=== PATIENT | female | born 1965 | race Caucasian/White ===

== ENCOUNTER → 2017-07-21 | Outpatient (CLI) | payer OTHER ==
[~2017-07-21] MED LIST: ASPI81CH PO; BAYER CHEWABLE81 MG PO; BENZ100A PO; CEPH500 PO; CLOP75 PO; DOXY100T53 PO; FAMO20 PO; IBUP800 PO; LISI5 PO; METO25; METO50ER PO; Naprosyn500 MG PO; Norco 5-325 Ta1 EACH PO; SIMV10 PO; Simvastatin20 MG PO; VARE1
[2017-07-21 16:48] LABS: BASOPHILS ABSOLUTE AUTO 0.05 K/mm3 (0.00-0.23); BASOPHILS PERCENT AUTO 1 % (0-2); EOSINOPHILS PERCENT AUTO 2 % (0-6); Hematocrit 41.1 % (33.0-51.0); IMMATURE GRAN ABSOLUTE AUTO 0.03 K/mm3 (0.00-0.10); IMMATURE GRAN PERCENT AUTO 0 % (0-1); LYMPHOCYTES ABSOLUTE AUTO 4.11 K/mm3 (0.84-5.20); LYMPHOCYTES PERCENT AUTO 39 % (21-46); MONOCYTES PERCENT AUTO 6 % (4-13); Mean Corpuscular HGB 28.9 pg (26.0-34.0); Mean Corpuscular HGB Conc 34.1 g/dL (31.5-36.5); Mean Corpuscular Volume 85 fL (80-100); Mean Platelet Volume 11.5 fL (9.1-12.4); NEUTROPHILS ABSOLUTE AUTO 5.55 K/mm3 (1.96-9.15); NEUTROPHILS PERCENT AUTO 53 % (41-73); Platelet Count 237 K/mm3 (150-400); RDW Coefficient Variation 14.2 % (11.7-14.2); RDW Standard Deviation 43.5 fL (35.1-46.3); Red Blood Cell Count 4.85 M/mm3 (3.80-5.20); White Blood Cell Count 10.54 K/mm3 (4.00-11.30)
[2017-07-21 17:07] LABS: Anion Gap 7 mmol/L (6-16); Blood Urea Nitrogen 14 mg/dL (8-24); Bun/Creatinine Ratio 17.1 (12.0-20.0); CO2, Blood 28 mmol/L (21-32); Calcium, Blood 9.4 mg/dL (8.5-10.1); Chloride, Blood 103 mmol/L (98-108); Creatinine, Blood 0.82 mg/dL (0.40-1.00); Glomerular Filtration Rate >60 (60-); Glucose, Blood 105 mg/dL (70-99); Potassium, Blood 3.9 mmol/L (3.5-5.5); Sodium, Blood 138 mmol/L (136-145)
[2017-07-21 17:08] LABS: Troponin I <0.017 ng/mL (0.000-0.040)
== END ==
LOC: LAB EV 16:30
PROVIDERS: Physician Assistant Surgical
DX: M79.602 Pain in left arm (principal)
CPT/HCPCS: 80048; 84484; 85025

== ENCOUNTER 2017-08-22 06:58 | Emergency (ER) | payer OTHER ==
[~2017-08-22] VITALS: Ht 154.9 cm; Wt 81.7 kg
[~2017-08-22 06:58] MED LIST changes: -BAYER CHEWABLE81 MG PO; -CEPH500 PO; -DOXY100T53 PO; -IBUP800 PO; -Naprosyn500 MG PO
[2017-08-22] MEDS ORDERED: IBUP800 PO (08:01)
[2017-08-22] MEDS ORDERED: Naprosyn500 MG PO (08:19)
== END 2017-08-22 08:27 | disposition home or self-care (01) ==
LOC: ER 06:58
DX: S61.211A Laceration without foreign body of left index finger without damage to nail, initial encounter (principal); Z23 Encounter for immunization; I25.2 Old myocardial infarction; Z88.2 Allergy status to sulfonamides; Z91.018 Allergy to other foods; Z91.030 Bee allergy status; Z88.5 Allergy status to narcotic agent; W26.0XXA Contact with knife, initial encounter; F17.210 Nicotine dependence, cigarettes, uncomplicated
CPT/HCPCS: 12001; 90471; 90714; 99283

== ENCOUNTER 2017-09-02 10:28 | Emergency (ER) | payer OTHER ==
[~2017-09-02] VITALS: Ht 154.9 cm; Wt 79.4 kg
[~2017-09-02 10:28] MED LIST changes: +IBUP800 PO; +Naprosyn500 MG PO
== END 2017-09-02 11:27 | disposition home or self-care (01) ==
LOC: ER 10:28
DX: S61.211D Laceration without foreign body of left index finger without damage to nail, subsequent encounter (principal); I25.2 Old myocardial infarction; F17.210 Nicotine dependence, cigarettes, uncomplicated; Z88.2 Allergy status to sulfonamides; Z91.018 Allergy to other foods; Z91.030 Bee allergy status; Z88.5 Allergy status to narcotic agent; Z79.1 Long term (current) use of non-steroidal anti-inflammatories (NSAID); W26.8XXD Contact with other sharp object(s), not elsewhere classified, subsequent encounter
CPT/HCPCS: 99281

== ENCOUNTER 2017-09-13 19:57 | Emergency (ER) | payer OTHER ==
[~2017-09-13] VITALS: Ht 162.6 cm; Wt 79.4 kg
[2017-09-13] MEDS ORDERED: BAYER CHEWABLE81 MG PO (20:31)
[2017-09-14] MEDS ORDERED: CEPH500 PO (16:09)
[2017-09-14] MEDS ORDERED: DOXY100T53 PO (16:09)
[2017-09-14] MEDS ORDERED: Naprosyn500 MG PO (16:09)
== END 2017-09-13 20:40 | disposition home or self-care (01) ==
LOC: ER 19:57
DX: S90.821A Blister (nonthermal), right foot, initial encounter (principal); X58.XXXA Exposure to other specified factors, initial encounter; Z88.2 Allergy status to sulfonamides; Z88.8 Allergy status to other drugs, medicaments and biological substances; Z91.030 Bee allergy status; Z88.5 Allergy status to narcotic agent; Z79.899 Other long term (current) drug therapy; I25.2 Old myocardial infarction; F17.210 Nicotine dependence, cigarettes, uncomplicated

== ENCOUNTER 2017-09-14 15:32 | Emergency (ER) | payer OTHER ==
[~2017-09-14] VITALS: Ht 154.9 cm; Wt 79.4 kg
[~2017-09-14 15:32] MED LIST changes: +BAYER CHEWABLE81 MG PO
[2017-09-14] MEDS ORDERED: Naprosyn500 MG PO (16:09)
[2017-09-14] MEDS ORDERED: DOXY100T53 PO (16:09)
[2017-09-14] MEDS ORDERED: CEPH500 PO (16:09)
== END 2017-09-14 16:29 | disposition home or self-care (01) ==
LOC: ER 15:32
DX: L03.115 Cellulitis of right lower limb (principal); Z88.2 Allergy status to sulfonamides; Z88.8 Allergy status to other drugs, medicaments and biological substances; Z91.030 Bee allergy status; Z88.5 Allergy status to narcotic agent; Z79.899 Other long term (current) drug therapy; Z79.2 Long term (current) use of antibiotics; Z79.82 Long term (current) use of aspirin; I25.2 Old myocardial infarction; F17.210 Nicotine dependence, cigarettes, uncomplicated

== ENCOUNTER 2018-04-25 22:51 | Emergency (ER) | payer MEDICAID ==
[~2018-04-25] VITALS: Ht 154.9 cm; Wt 79.4 kg
[~2018-04-25 22:51] MED LIST changes: +CEPH500 PO; +DOXY100T53 PO
[2018-04-26] MEDS ORDERED: Naprosyn500 MG PO (00:51)
== END 2018-04-26 01:00 | disposition home or self-care (01) ==
LOC: ER 22:51
DX: G56.02 Carpal tunnel syndrome, left upper limb (principal); I25.2 Old myocardial infarction; F17.210 Nicotine dependence, cigarettes, uncomplicated; Z79.82 Long term (current) use of aspirin; Z88.2 Allergy status to sulfonamides; Z88.8 Allergy status to other drugs, medicaments and biological substances; Z88.5 Allergy status to narcotic agent; Z91.030 Bee allergy status
CPT/HCPCS: 29125; 93971; 99283-25

== ENCOUNTER 2018-09-18 21:33 | Inpatient (IN) | payer OTHER ==
[~2018-09-18] VITALS: Ht 154.9 cm; Wt 150.4 kg
[2018-09-18 22:20] LABS: BASOPHILS ABSOLUTE AUTO 0.04 K/mm3 (0.00-0.23); BASOPHILS PERCENT AUTO 0 % (0-2); EOSINOPHILS ABSOLUTE AUTO 0.15 K/mm3 (0.00-0.68); EOSINOPHILS PERCENT AUTO 2 % (0-6); Hematocrit 41.4 % (33.0-51.0); Hemoglobin 13.3 g/dL (11.5-16.0); IMMATURE GRAN ABSOLUTE AUTO 0.03 K/mm3 (0.00-0.10); IMMATURE GRAN PERCENT AUTO 0 % (0-1); LYMPHOCYTES PERCENT AUTO 36 % (21-46); MONOCYTES ABSOLUTE AUTO 0.51 K/mm3 (0.16-1.47); MONOCYTES PERCENT AUTO 5 % (4-13); Mean Corpuscular HGB 27.6 pg (26.0-34.0); Mean Corpuscular HGB Conc 32.1 g/dL (31.5-36.5); Mean Corpuscular Volume 86 fL (80-100); Mean Platelet Volume 11.9 fL (9.1-12.4); NEUTROPHILS ABSOLUTE AUTO 5.79 K/mm3 (1.96-9.15); NEUTROPHILS PERCENT AUTO 57 % (41-73); Platelet Count 216 K/mm3 (150-400); RDW Coefficient Variation 13.8 % (11.7-14.2); RDW Standard Deviation 43.7 fL (35.1-46.3); Red Blood Cell Count 4.82 M/mm3 (3.80-5.20); White Blood Cell Count 10.22 K/mm3 (4.00-11.30)
[2018-09-18 22:40] LABS: Alanine Aminotransfer (ALT/SGP 30 U/L (12-78); Albumin, Blood 3.7 g/dL (3.4-5.0); Albumin/Globulin Ratio 1.1 (0.8-1.8); Alk Phos 118 U/L (50-136); Anion Gap 9 mmol/L (6-16); Aspartate Aminotrans (AST/SGOT 11 U/L (12-37); Bilirubin, Total 0.2 mg/dL (0.1-1.0); Blood Urea Nitrogen 15 mg/dL (8-24); Bun/Creatinine Ratio 20.9 (12.0-20.0); CO2, Blood 25 mmol/L (21-32); Calcium, Blood 8.8 mg/dL (8.5-10.1); Chloride, Blood 107 mmol/L (98-108); Creatinine, Blood 0.72 mg/dL (0.40-1.00); Globulin, Blood 3.4 g/dL (2.2-4.0); Glomerular Filtration Rate >60 (60-); Glucose, Blood 110 mg/dL (70-99); Potassium, Blood 3.7 mmol/L (3.5-5.5); Sodium, Blood 141 mmol/L (136-145); Total Protein, Blood 7.1 g/dL (6.4-8.2); Troponin I 0.046 ng/mL (0.000-0.040)
[2018-09-18 23:56] LABS: International Normalized Ratio 0.93; Prothrombin Time Results 9.8 Sec (9.7-11.5)
--- NOTE | 2018-09-19 04:31 | NUR ---
ASSUMED CARE OF PT FROM ED @ 9273. PT ALERT AND ORIENTED, TALKING WITH STAFF APPROPRIUATELY. PT DENYING CP, PRESSURE, SOB UPON ADMISSION AND HAS CONTINUED TO DO SO T/O THE SHIFT. VSS STABLE UPON ADMISSION AND CONTINUES TO BE SO. PT'S TELE HAS SHOWN NSR WITH PVC'S. PT HAS DENIED ANY EPISODES OF ANXIETY THAT SHE REPORTEDLY HAS AT TIMES PER THE PATIENT. PT HAS BEEN RESTING IN ROOM POST ADMISSION ASSESMENT. CALL LIGHT ON BED. BED TO LOWEST POSITION. WILL CONTINUE TO MONITOR PT UNTIL SHIFT CHANGE.
--- NOTE | 2018-09-19 05:30 | NUR ---
PT PLACED ON HEPARIN INFUSION, 16.1 ML/HR UPON ADMISSION, BOLUS GIVEN.
[2018-09-19 06:39] LABS: Hematocrit 41.9 % (33.0-51.0); Hemoglobin 13.3 g/dL (11.5-16.0); Mean Corpuscular HGB 27.5 pg (26.0-34.0); Mean Corpuscular HGB Conc 31.7 g/dL (31.5-36.5); Mean Corpuscular Volume 87 fL (80-100); Mean Platelet Volume 11.9 fL (9.1-12.4); Platelet Count 179 K/mm3 (150-400); RDW Coefficient Variation 13.9 % (11.7-14.2); RDW Standard Deviation 43.8 fL (35.1-46.3); Red Blood Cell Count 4.84 M/mm3 (3.80-5.20); White Blood Cell Count 8.54 K/mm3 (4.00-11.30)
[2018-09-19 07:03] LABS: Troponin I 0.098 ng/mL (0.000-0.040)
[2018-09-19 07:12] LABS: Alanine Aminotransfer (ALT/SGP 31 U/L (12-78); Albumin, Blood 3.3 g/dL (3.4-5.0); Alk Phos 111 U/L (50-136); Anion Gap 9 mmol/L (6-16); Aspartate Aminotrans (AST/SGOT 11 U/L (12-37); Bilirubin, Total 0.2 mg/dL (0.1-1.0); Blood Urea Nitrogen 14 mg/dL (8-24); Bun/Creatinine Ratio 20.5 (12.0-20.0); CO2, Blood 24 mmol/L (21-32); Calcium, Blood 8.7 mg/dL (8.5-10.1); Chloride, Blood 110 mmol/L (98-108); Creatinine, Blood 0.68 mg/dL (0.40-1.00); Globulin, Blood 3.3 g/dL (2.2-4.0); Glomerular Filtration Rate >60 (60-); Glucose, Blood 115 mg/dL (70-99); Potassium, Blood 3.8 mmol/L (3.5-5.5); Sodium, Blood 143 mmol/L (136-145); Total Protein, Blood 6.6 g/dL (6.4-8.2)
--- NOTE | 2018-09-19 07:20 | NUR ---
AM ASSESSMENT: Pt resting in bed. Denies CP, SOB or pain at this time. LS clear. BT positive. Pulses palp. Denies numbness or tingling. Pt waiting to see [employer] Salesperson for plan. VSS. Will continue to monitor.
[2018-09-19 09:24] LABS: U Amphetamine Screen Not Detected; U Barbituate Screen Not Detected; U Benzodiazapine Screen Not Detected; U Buprenorphine Screen Not Detected; U Cannabinoids Screen Not Detected; U Cocaine Screen Not Detected; U Methadone Screen Not Detected; U Methamphetamine Screen Not Detected; U Opiates Screen Not Detected; U Oxycodone Screen Not Detected; U Phencyclidine Screen Not Detected; U Propoxyphene Screen Not Detected
--- NOTE | 2018-09-19 11:35 | NUR ---
UPDATE: Pt started to have C/O chest pain. that was in the L side of chest and radiated over back and down arms. States it is a pressure pain 10/16. VSS. No changes or Tele. Pt medicated with one tablet of SL nitro. Pain decreased down to 0. Pt NPO for an angiogram today. Will monitor and inform physicain of episode of chest pain. Pt denies needs at this time.
--- NOTE | 2018-09-19 14:10 | NUR ---
update: Pt states that she was having 5/10 chest pain. No changes on tele. By the time RN went into room Chest pain had subsided and Pt denied needing nitro. VSS. Call light in reach. Pt knows that she will be having an angiogram today. Still NPO. Will continue to monitor.
[2018-09-19 14:49] LABS: Troponin I 0.046 ng/mL (0.000-0.040)
--- NOTE | 2018-09-19 15:45 | NUR ---
PT TAKEN TO [facility]. WILL AWAIT RETURN
--- NOTE | 2018-09-19 18:41 | NUR ---
Shift Summary: Pt arrived back to room post angiogram at 1715. VSS. R wrist TR band site with some numbness and tingling to fingers. Cap refill is <2. 2CC air removed, no bleeding, swelling, oozing or hematoma noted. 10CC air left in band. LS clear. HR reg. Pt denies CP, Pain or SOB. Pt instructed not to use R wrist and about post-op vitals routine. Pt given dinner, water and juice per her request. Will continue to monitor and report to night RN.
--- NOTE | 2018-09-19 19:25 | NUR ---
UPDATE: At 1845 check pt had small hemtoma formed just above TR band site. 12 min of pressure held. Pt C/O some tenderness at site and some numbness in fingers. Cap refil <3 sec, small amount of swelling in fingers. Rings were removed and placed in baggy in drawer at bedside. Pressure dressing placed at hematoma site after pressure was held and report was given to night RN.
[2018-09-20 04:14] LABS: BASOPHILS ABSOLUTE AUTO 0.04 K/mm3 (0.00-0.23); BASOPHILS PERCENT AUTO 1 % (0-2); EOSINOPHILS ABSOLUTE AUTO 0.18 K/mm3 (0.00-0.68); EOSINOPHILS PERCENT AUTO 2 % (0-6); Hematocrit 42.2 % (33.0-51.0); Hemoglobin 13.6 g/dL (11.5-16.0); IMMATURE GRAN ABSOLUTE AUTO 0.02 K/mm3 (0.00-0.10); IMMATURE GRAN PERCENT AUTO 0 % (0-1); LYMPHOCYTES ABSOLUTE AUTO 2.67 K/mm3 (0.84-5.20); LYMPHOCYTES PERCENT AUTO 32 % (21-46); MONOCYTES ABSOLUTE AUTO 0.47 K/mm3 (0.16-1.47); MONOCYTES PERCENT AUTO 6 % (4-13); Mean Corpuscular HGB 27.1 pg (26.0-34.0); Mean Corpuscular HGB Conc 32.2 g/dL (31.5-36.5); Mean Platelet Volume 11.5 fL (9.1-12.4); NEUTROPHILS ABSOLUTE AUTO 4.91 K/mm3 (1.96-9.15); NEUTROPHILS PERCENT AUTO 59 % (41-73); Platelet Count 217 K/mm3 (150-400); RDW Standard Deviation 42.7 fL (35.1-46.3); Red Blood Cell Count 5.02 M/mm3 (3.80-5.20); White Blood Cell Count 8.29 K/mm3 (4.00-11.30)
[2018-09-20 04:16] LABS: Mean Corpuscular Volume 84 fL (80-100)
[2018-09-20 04:35] LABS: Anion Gap 7 mmol/L (6-16); Anion Gap 8 mmol/L (6-16); Blood Urea Nitrogen 13 mg/dL (8-24); Bun/Creatinine Ratio 19.7 (12.0-20.0); Bun/Creatinine Ratio 20.1 (12.0-20.0); CHOL/HDL RATIO 5.7; CO2, Blood 25 mmol/L (21-32); CO2, Blood 26 mmol/L (21-32); Calcium, Blood 8.8 mg/dL (8.5-10.1); Chloride, Blood 108 mmol/L (98-108); Chloride, Blood 109 mmol/L (98-108); Cholesterol 165 mg/dL (50-200); Cholesterol 170 mg/dL (50-200); Creatinine, Blood 0.65 mg/dL (0.40-1.00); Creatinine, Blood 0.66 mg/dL (0.40-1.00); Glomerular Filtration Rate >60 (60-); Glucose, Blood 116 mg/dL (70-99); Glucose, Blood 120 mg/dL (70-99); HDL Cholesterol 29 mg/dL (>39); HDL Cholesterol 30 mg/dL (>39); LDL/HDL RATIO 3.5; Low Density Lipoprotein Chol 100 mg/dL (0-110); Low Density Lipoprotein Chol 105 mg/dL (0-110); Potassium, Blood 3.9 mmol/L (3.5-5.5); Sodium, Blood 141 mmol/L (136-145); Sodium, Blood 142 mmol/L (136-145); Triglycerides 173 mg/dL (30-160); Triglycerides 178 mg/dL (30-160); Very Low Density Lipoprot Chol 34 mg/dL (6-32); Very Low Density Lipoprot Chol 35 mg/dL (6-32)
--- NOTE | 2018-09-20 05:19 | NUR ---
SHIFT SUMMARY PATIENT REMAINED STABLE THROUGHOUT THE SHIFT. STAYED ON NSR WITH PVC'S AND SINUS BRADYCARDIA HEART RATE AT 57. TR BAND ON RIGHT RADIAL WITH HEMATOMA, REMOVED 2ML OF AIR AT 1915, REMOVED 2ML OF AI 1999, ADDED 4ML OF AIR AT 2145 BECAUSE OF BLEEDING, REMOVED 2 ML OF AIR AT 0400, REMOVED 3ML AT 0415, REMOVED 3ML AT 0500, AT 0515 PATIENT FULLY RECOVERED. BED IS LOCK, IN LOW POSITION AND CALL LIGHT WITHIN REACH.
--- NOTE | 2018-09-20 07:50 | NUR ---
AM ASSESSMENT: Pt resting in bed. R wrist with TR band site immobilizer intact. Pt has bruise and tenderness at site, tegaderm dressing clean and intact. Pt denies CP, SOB, pain or numbness/tingling. States that she is excited to go home today. LS clear. BT positive. Pulses palp. VSS. Call light in reach. Will monitor.
[2018-09-20] MEDS ORDERED: Aspir 8181 MG PO (10:30)
[2018-09-20] MEDS ORDERED: CLOP75 PO (10:31)
[2018-09-20] MEDS ORDERED: ATOR80 PO (10:31)
[2018-09-20] MEDS ORDERED: FISH OIL 1,001000 MG PO (10:53)
[2018-09-20] MEDS ORDERED: NITR.4SL SL (10:55)
[2018-09-20] MEDS ORDERED: METO25 PO (11:41)
[2018-09-20] MEDS ORDERED: NICO21TP TOP (11:41)
--- NOTE | 2018-09-20 13:30 | NUR ---
Discharge: Pt has discharge orders. Was able to get up and ambulate throughout the hallway without issues. VS had remained stable since this am. Rx were faxed to [facility]. IV discontinued, Cath intact. Pt was given verbal and written discharge instructions. Denies questions, verablized understanding. Pt ambulated out with RN. Stable at time of discharge.
== END 2018-09-20 13:20 | disposition home or self-care (01) | DRG 249 ==
LOC: ER 21:33 → PCU 21:34
PROVIDERS: Emergency Medicine; Internal Medicine; Internal Medicine Cardiovascular Disease; ADMIT Internal Medicine
PROC: 4A023N7 Measurement of Cardiac Sampling and Pressure, Left Heart, Percutaneous Approach (ICD-10-PCS; principal; 2018-09-19)
PROC: 02703DZ Dilation of Coronary Artery, One Artery with Intraluminal Device, Percutaneous Approach (ICD-10-PCS; 2018-09-19)
PROC: B211YZZ Fluoroscopy of Multiple Coronary Arteries using Other Contrast (ICD-10-PCS; 2018-09-19)
DX: I21.4 Non-ST elevation (NSTEMI) myocardial infarction (principal); F17.210 Nicotine dependence, cigarettes, uncomplicated; I25.10 Atherosclerotic heart disease of native coronary artery without angina pectoris; E78.5 Hyperlipidemia, unspecified; I10 Essential (primary) hypertension
CPT/HCPCS: 36415; 71046; 80048; 80053; 80061; 82550; 83880; 84484; 85025; 85027; 85610; 85730; 92928; 93005; 93010; 93306; 93458; 96374; 96375; 96376; 99152; 99153; 99285-25; C1725; C1769; C1876; C1887; C1894; G0378; J1644; J2250; J3010; J7030; Q9967

== ENCOUNTER → 2019-04-19 | Outpatient (CLI) | payer OTHER ==
[~2019-04-19] MED LIST changes: +ATOR40TA PO; +ATOR80 PO; +Aspir 8181 MG PO; +Bisoprolol Fumar5 MG PO; +FISH OIL 1,001000 MG PO; +Isosorbide Mono30 MG PO; +NICO21TP TOP; +NITR.4SL SL; +TICA90TA PO
[2019-04-30 15:06] LABS: COTININE None Detected (.); NICOTINE None Detected (.)
== END | disposition home or self-care (01) ==
LOC: OLS 16:21 → LAB SHORT 16:21 → LAB FUT 16:21
PROVIDERS: Internal Medicine Cardiovascular Disease
DX: I25.10 Atherosclerotic heart disease of native coronary artery without angina pectoris (principal); Z87.891 Personal history of nicotine dependence
CPT/HCPCS: G0480

== ENCOUNTER 2019-05-21 07:34 | Day surgery (SDC) | payer OTHER ==
[~2019-05-21] VITALS: Ht 152.4 cm; Wt 83.0 kg
[~2019-05-21 07:34] MED LIST changes: -TICA90TA PO
--- NOTE | 2019-05-21 16:30 | NUR ---
UPDATE ASSUMED CARE AT APPROXIMATELY 1430. PT ALERT AND ORIENTED. VS STABLE. HR NSR. BP STABLE. RIGHT RADIAL SITE WITH TR BAND 12ML OF AIR INFLATED. NO SIGNS OF BLEEDING, HEMATOMA, OR BRUISING NOTED. PT REPORTS SLIGHT TIGHTNESS IN CHEST. SLIGHT SWELLING NOTED AT RIGHT ELBOW. DR. SAWANT CALLED AND ORDERS TO WRAP IN [place] AND MONITOR SWELLING. WILL CONTINUE TO MONITOR CLOSELY.
--- NOTE | 2019-05-21 18:51 | NUR ---
SHIFT SUMMARY PT ALERT AND ORIENTED. VS STABLE. RIGHT RADIAL SITE WITH TR BAND AND 6ML REMOVED FROM BAND AT THIS TIME. NO BLEEDING OR BRUISING NOTED. SWELLING TO RIGHT ELBOW REMAINS UNCHANGED AT THIS TIME. SPOKE TO DR. SAWANT AGAIN ON THE PHONE AND HE REPORTS HE WILL BE BY IN THE AM TO SEE PT. WILL CONTINUE TO MONITOR AND REPORT TO ONCOMING RN.
--- NOTE | 2019-05-21 21:30 | NUR ---
TR BAND REMOVED TR BAND REMOVED, NO S/SX OF BLEEDING OR HEMATOMA NOTED. TEGADERM DRESSING APPLIED OVER PCI SITE. ARM BOARD INPLACE. PATIENT EDUCATED TO POST ANGIO PRECAUTIONS. VSS.
--- NOTE | 2019-05-22 06:02 | NUR ---
PCU NOC SHIFT SUMMARY PATIENT REMAINS ALERT AND ORIENTED X4. PATIENTS HR REMAINS NSR WITH NO CARDIAC EVENTS NOTED PER PATIENT. RESP E/U ON ROOM AIR. PATIENT SLEPT WELL T/O SHIFT. NO S/SX OR REPORT OF PAIN. ARM BOARD REMAIN ON RIGHT RADIAL FOR PCI SITE PROTECTION - TEGADERM DRESSING IN PLACE, SITE WNL. CALL LIGHT W/I REACH; PATIENT DENIES ANY NEEDS AT THIS TIME. WILL CONTINUE TO MONITOR AND REPORT TO DAYSHIFT RN.
[2019-05-22] MEDS ORDERED: METO50ER PO (09:05)
[2019-05-22] MEDS ORDERED: TICA90TA PO (09:07)
--- NOTE | 2019-05-22 10:14 | NUR ---
UPDATE DR. SAWANT IN THIS AM WITH ORDERS FOR DISCHARGE. RIGHT RADIAL SITE WITH TEGADERM IN PLACE AND ARM BOARD ON. NO HEMATOMA OR BLEEDING NOTED. DISCHARGE INSTRUCTIONS PROVIDED TO PT. PT EDUCATED ON RIGHT ARM RESTRICTIONS. EDUCATION PROVIDED ON NEW MEDICATIONS. PT PROVIDED FOLLOW-UP APPT WITH CARDIOLOGY. IV REMOVED. DIRECTOR PUBLIC SERVICE OFF. PT WAITING FOR RIDE AND WILL BE TAKEN OUT BY WC.
== END 2019-05-22 10:50 | disposition home or self-care (01) ==
LOC: MHTC 07:34 → PCU 14:24 → MHTC 05-22 10:50
PROC: 02H03DZ Insertion of Intraluminal Device into Coronary Artery, One Artery, Percutaneous Approach (ICD-10-PCS; principal; 2019-05-21)
PROC: B201YZZ Plain Radiography of Multiple Coronary Arteries using Other Contrast (ICD-10-PCS; principal; 2019-05-21)
PROC: 4A023N7 Measurement of Cardiac Sampling and Pressure, Left Heart, Percutaneous Approach (ICD-10-PCS; principal; 2019-05-21)
DX: I25.110 Atherosclerotic heart disease of native coronary artery with unstable angina pectoris (principal); T82.855A Stenosis of coronary artery stent, initial encounter; Y71.2 Prosthetic and other implants, materials and accessory cardiovascular devices associated with adverse incidents; I10 Essential (primary) hypertension; I25.2 Old myocardial infarction; E78.5 Hyperlipidemia, unspecified; Z87.891 Personal history of nicotine dependence; Z88.2 Allergy status to sulfonamides; Z79.02 Long term (current) use of antithrombotics/antiplatelets; Z79.899 Other long term (current) drug therapy; Z79.82 Long term (current) use of aspirin
CPT/HCPCS: 85347; 92921; 92978; 93458; 99152; 99153; C1725; C1753; C1769; C1874; C1887; C1894; C9600; J1644; J1650; J2250; J3010; J7030; Q9967

== ENCOUNTER → 2019-06-14 | Outpatient (CLI) | payer OTHER ==
[~2019-06-14] MED LIST changes: +TICA90TA PO
[2019-06-14 18:13] LABS: Source, Urine Clean Catch
[2019-06-14 18:17] LABS: Bacteria Rare /hpf; Red Blood Cells, Urine 0-2 /hpf (0-2); Squamous Epithelial Cells Few /hpf (Few); White Blood Cells, Urine 0-2 /hpf (0-5)
== END | disposition home or self-care (01) ==
LOC: LAB SHORT 18:12 → LAB EV 18:12
PROVIDERS: Physician Assistant
DX: M54.5 Low back pain (principal)
CPT/HCPCS: 81015; 87086

== ENCOUNTER → 2020-02-13 | Outpatient (CLI) | payer OTHER ==
[2020-02-13 12:11] LABS: BASOPHILS ABSOLUTE AUTO 0.02 K/mm3 (0.00-0.23); BASOPHILS PERCENT AUTO 0 % (0-2); EOSINOPHILS ABSOLUTE AUTO 0.16 K/mm3 (0.00-0.68); EOSINOPHILS PERCENT AUTO 2 % (0-6); Hematocrit 42.3 % (33.0-51.0); Hemoglobin 14.1 g/dL (11.5-16.0); IMMATURE GRAN ABSOLUTE AUTO 0.03 K/mm3 (0.00-0.10); IMMATURE GRAN PERCENT AUTO 0 % (0-1); LYMPHOCYTES ABSOLUTE AUTO 2.27 K/mm3 (0.84-5.20); LYMPHOCYTES PERCENT AUTO 33 % (21-46); MONOCYTES ABSOLUTE AUTO 0.48 K/mm3 (0.16-1.47); MONOCYTES PERCENT AUTO 7 % (4-13); Mean Corpuscular HGB 27.3 pg (26.0-34.0); Mean Corpuscular HGB Conc 33.3 g/dL (31.5-36.5); Mean Corpuscular Volume 82 fL (80-100); Mean Platelet Volume 11.5 fL (9.1-12.4); NEUTROPHILS ABSOLUTE AUTO 3.98 K/mm3 (1.96-9.15); NEUTROPHILS PERCENT AUTO 57 % (41-73); Platelet Count 226 K/mm3 (150-400); RDW Coefficient Variation 14.2 % (11.7-14.2); RDW Standard Deviation 41.4 fL (35.1-46.3); Red Blood Cell Count 5.16 M/mm3 (3.80-5.20); White Blood Cell Count 6.94 K/mm3 (4.00-11.30)
[2020-02-13 12:23] LABS: Anion Gap 8 mmol/L (6-16); Blood Urea Nitrogen 11 mg/dL (8-24); Bun/Creatinine Ratio 11.2 (12.0-20.0); CO2, Blood 27 mmol/L (21-32); Calcium, Blood 9.6 mg/dL (8.5-10.1); Chloride, Blood 104 mmol/L (98-108); Creatinine, Blood 0.98 mg/dL (0.40-1.00); Glomerular Filtration Rate 59 (60-); Glucose, Blood 107 mg/dL (70-99); Potassium, Blood 4.3 mmol/L (3.5-5.5); Sodium, Blood 139 mmol/L (136-145)
[2020-02-13 12:27] LABS: Troponin I <0.017 ng/mL (0.000-0.040)
== END | disposition home or self-care (01) ==
LOC: LAB EV 11:55 → LAB SHORT 11:55
PROVIDERS: Physician Assistant Surgical
DX: M79.602 Pain in left arm (principal)
CPT/HCPCS: 80048; 84484; 85025

== ENCOUNTER → 2021-08-26 | Outpatient (CLI) | payer OTHER ==
[2021-08-26 17:45] LABS: Albumin, Blood 3.8 g/dL (3.4-5.0); Albumin/Globulin Ratio 0.9 (0.8-1.8); Alk Phos 199 U/L (50-136); Anion Gap 4 mmol/L (6-16); Aspartate Aminotrans (AST/SGOT 109 U/L (12-37); Bilirubin, Direct 0.2 mg/dL (0.0-0.3); Bilirubin, Indirect 0.2 mg/dL (0.1-0.7); Bilirubin, Total 0.4 mg/dL (0.1-1.0); Blood Urea Nitrogen 10 mg/dL (8-24); CO2, Blood 27 mmol/L (21-32); Calcium, Blood 9.1 mg/dL (8.5-10.1); Chloride, Blood 107 mmol/L (98-108); Cholesterol 134 mg/dL (50-200); Globulin, Blood 4.1 g/dL (2.2-4.0); Glucose, Blood 119 mg/dL (70-99); HDL Cholesterol 27 mg/dL (>39); LDL/HDL RATIO 3.2; Low Density Lipoprotein Chol 87 mg/dL (0-110); Potassium, Blood 4.4 mmol/L (3.5-5.5); Sodium, Blood 138 mmol/L (136-145); Total Protein, Blood 7.9 g/dL (6.4-8.2); Triglycerides 99 mg/dL (30-160); Very Low Density Lipoprot Chol 19 mg/dL (6-32)
[2021-08-26 17:51] LABS: Alanine Aminotransfer (ALT/SGP 199 U/L (12-78); Bun/Creatinine Ratio 16.2 (12.0-20.0); Creatinine, Blood 0.62 mg/dL (0.40-1.00); Glomerular Filtration Rate >60 (60-)
== END | disposition home or self-care (01) ==
LOC: LAB SHORT 16:46
PROVIDERS: Nurse Practitioner Family
DX: E55.9 Vitamin D deficiency, unspecified (principal); E66.9 Obesity, unspecified; B35.4 Tinea corporis
CPT/HCPCS: 80053; 80061; 82248; 82306; 83036; 84443

== ENCOUNTER → 2021-09-01 | Outpatient (CLI) | payer OTHER ==
[2021-09-01 15:17] LABS: BASOPHILS ABSOLUTE AUTO 0.03 K/mm3 (0.00-0.23); BASOPHILS PERCENT AUTO 0 % (0-2); EOSINOPHILS PERCENT AUTO 1 % (0-6); Hematocrit 42.1 % (33.0-51.0); IMMATURE GRAN ABSOLUTE AUTO 0.02 K/mm3 (0.00-0.10); IMMATURE GRAN PERCENT AUTO 0 % (0-1); LYMPHOCYTES ABSOLUTE AUTO 2.25 K/mm3 (0.84-5.20); LYMPHOCYTES PERCENT AUTO 29 % (21-46); MONOCYTES ABSOLUTE AUTO 0.48 K/mm3 (0.16-1.47); MONOCYTES PERCENT AUTO 6 % (4-13); Mean Corpuscular HGB 27.6 pg (26.0-34.0); Mean Corpuscular HGB Conc 33.3 g/dL (31.5-36.5); Mean Corpuscular Volume 83 fL (80-100); Mean Platelet Volume 11.2 fL (9.1-12.4); NEUTROPHILS ABSOLUTE AUTO 4.81 K/mm3 (1.96-9.15); NEUTROPHILS PERCENT AUTO 63 % (41-73); Platelet Count 181 K/mm3 (150-400); RDW Coefficient Variation 14.5 % (11.7-14.2); RDW Standard Deviation 43.1 fL (35.1-46.3); Red Blood Cell Count 5.07 M/mm3 (3.80-5.20); White Blood Cell Count 7.69 K/mm3 (4.00-11.30)
[2021-09-01 15:26] LABS: Alanine Aminotransfer (ALT/SGP 192 U/L (12-78); Albumin, Blood 3.9 g/dL (3.4-5.0); Albumin/Globulin Ratio 0.8 (0.8-1.8); Alk Phos 178 U/L (40-126); Anion Gap 10 mmol/L (6-16); Aspartate Aminotrans (AST/SGOT 100 U/L (12-37); Bilirubin, Total 0.6 mg/dL (0.1-1.0); Blood Urea Nitrogen 15 mg/dL (8-24); Bun/Creatinine Ratio 20.8 (12.0-20.0); CO2, Blood 25 mmol/L (21-32); Calcium, Blood 9.1 mg/dL (8.5-10.1); Chloride, Blood 102 mmol/L (98-108); Creatinine, Blood 0.72 mg/dL (0.40-1.00); Globulin, Blood 4.8 g/dL (2.2-4.0); Glomerular Filtration Rate >60 (60-); Glucose, Blood 106 mg/dL (70-99); Potassium, Blood 3.9 mmol/L (3.5-5.5); Sodium, Blood 137 mmol/L (136-145); Total Protein, Blood 8.7 g/dL (6.4-8.2)
[2021-09-02 20:08] LABS: ANA DIRECT Positive (Negative); ANTI-DNA (DS) AB QN 22 IU/mL (0-9); RNP ANTIBODIES 0.5 AI (0.0-0.9); SJOGREN'S ANTI-SS-A <0.2 AI (0.0-0.9); SJOGREN'S ANTI-SS-B <0.2 AI (0.0-0.9); SMITH ANTIBODIES <0.2 AI (0.0-0.9)
== END | disposition home or self-care (01) ==
LOC: LAB SHORT 15:11
PROVIDERS: Chiropractor
DX: R21 Rash and other nonspecific skin eruption (principal)
CPT/HCPCS: 80053; 85025; 86430

== ENCOUNTER → 2022-08-05 | Outpatient (CLI) | payer OTHER ==
[2022-08-05 19:43] LABS: BASOPHILS ABSOLUTE AUTO 0.03 K/mm3 (0.00-0.23); BASOPHILS PERCENT AUTO 0 % (0-2); EOSINOPHILS ABSOLUTE AUTO 0.07 K/mm3 (0.00-0.68); EOSINOPHILS PERCENT AUTO 1 % (0-6); Hematocrit 40.9 % (33.0-51.0); Hemoglobin 13.5 g/dL (11.5-16.0); IMMATURE GRAN ABSOLUTE AUTO 0.01 K/mm3 (0.00-0.10); IMMATURE GRAN PERCENT AUTO 0 % (0-1); LYMPHOCYTES ABSOLUTE AUTO 2.64 K/mm3 (0.84-5.20); LYMPHOCYTES PERCENT AUTO 39 % (21-46); MONOCYTES ABSOLUTE AUTO 0.32 K/mm3 (0.16-1.47); MONOCYTES PERCENT AUTO 5 % (4-13); Mean Corpuscular HGB 27.7 pg (26.0-34.0); Mean Corpuscular Volume 84 fL (80-100); Mean Platelet Volume 12.4 fL (9.1-12.4); NEUTROPHILS ABSOLUTE AUTO 3.73 K/mm3 (1.96-9.15); NEUTROPHILS PERCENT AUTO 55 % (41-73); Platelet Count 196 K/mm3 (150-400); RDW Coefficient Variation 14.1 % (11.7-14.2); RDW Standard Deviation 43.7 fL (35.1-46.3); Red Blood Cell Count 4.87 M/mm3 (3.80-5.20)
[2022-08-05 20:04] LABS: Albumin, Blood 3.8 g/dL (3.4-5.0); Bilirubin, Total 0.5 mg/dL (0.1-1.0); Bun/Creatinine Ratio 14.9 (12.0-20.0); Calcium, Blood 9.2 mg/dL (8.5-10.1); Creatinine, Blood 0.74 mg/dL (0.40-1.00); Globulin, Blood 3.9 g/dL (2.2-4.0); Total Protein, Blood 7.7 g/dL (6.4-8.2)
== END | disposition home or self-care (01) ==
LOC: LAB SHORT 14:30
PROVIDERS: Internal Medicine Rheumatology
DX: L93.0 Discoid lupus erythematosus (principal); K76.89 Other specified diseases of liver
CPT/HCPCS: 80053; 85025; 85651

== ENCOUNTER → 2023-10-17 | Outpatient (CLI) | payer OTHER ==
[2023-10-17 17:43] LABS: BASOPHILS ABSOLUTE AUTO 0.04 K/mm3 (0.00-0.23); BASOPHILS PERCENT AUTO 1 % (0-2); EOSINOPHILS ABSOLUTE AUTO 0.11 K/mm3 (0.00-0.68); EOSINOPHILS PERCENT AUTO 1 % (0-6); Hematocrit 42.6 % (33.0-51.0); Hemoglobin 13.9 g/dL (11.5-16.0); IMMATURE GRAN ABSOLUTE AUTO 0.05 K/mm3 (0.00-0.10); IMMATURE GRAN PERCENT AUTO 1 % (0-1); LYMPHOCYTES ABSOLUTE AUTO 2.74 K/mm3 (0.84-5.20); LYMPHOCYTES PERCENT AUTO 33 % (21-46); MONOCYTES ABSOLUTE AUTO 0.42 K/mm3 (0.16-1.47); MONOCYTES PERCENT AUTO 5 % (4-13); Mean Corpuscular HGB 27.8 pg (26.0-34.0); Mean Corpuscular HGB Conc 32.6 g/dL (31.5-36.5); Mean Corpuscular Volume 85 fL (80-100); Mean Platelet Volume 11.9 fL (9.1-12.4); NEUTROPHILS ABSOLUTE AUTO 5.07 K/mm3 (1.96-9.15); NEUTROPHILS PERCENT AUTO 60 % (41-73); Platelet Count 198 K/mm3 (150-400); RDW Standard Deviation 43.3 fL (35.1-46.3); White Blood Cell Count 8.43 K/mm3 (4.00-11.30)
[2023-10-17 18:00] LABS: Alanine Aminotransfer (ALT/SGP 23 U/L (12-78); Albumin, Blood 3.9 g/dL (3.4-5.0); Alk Phos 123 U/L (50-136); Anion Gap 8 mmol/L (3-11); Aspartate Aminotrans (AST/SGOT 15 U/L (12-37); Bilirubin, Total 0.4 mg/dL (0.1-1.0); Blood Urea Nitrogen 12 mg/dL (8-24); Bun/Creatinine Ratio 15.7 (12.0-20.0); CHOL/HDL RATIO 5.7; CO2, Blood 27 mmol/L (21-32); Chloride, Blood 106 mmol/L (98-108); Cholesterol 198 mg/dL (50-200); Creatinine, Blood 0.76 mg/dL (0.40-1.00); Globulin, Blood 3.8 g/dL (2.2-4.0); Glomerular Filtration Rate 90 (60-); Glucose, Blood 102 mg/dL (70-99); HDL Cholesterol 35 mg/dL (>39); LDL/HDL RATIO 3.8; Low Density Lipoprotein Chol 132 mg/dL (0-110); Potassium, Blood 4.2 mmol/L (3.5-5.5); Sodium, Blood 137 mmol/L (136-145); Total Protein, Blood 7.7 g/dL (6.4-8.2); Triglycerides 157 mg/dL (30-160); Very Low Density Lipoprot Chol 31 mg/dL (6-32)
== END ==
LOC: LAB 08:20 → LAB SHORT 08:20
PROVIDERS: Nurse Practitioner Family
DX: I10 Essential (primary) hypertension (principal); E55.9 Vitamin D deficiency, unspecified; E78.5 Hyperlipidemia, unspecified; R73.03 Prediabetes
CPT/HCPCS: 80053; 80061; 82306; 83036; 84443; 85025

== ENCOUNTER 2024-03-30 06:40 | Day surgery (SDC) | payer OTHER ==
[~2024-03-30] VITALS: Ht 152.4 cm; Wt 84.0 kg
[2024-03-30] MEDS ORDERED: HYDSUL200 PO (07:15)
[2024-03-30] MEDS ORDERED: HYDSUL200 (07:15)
[2024-03-30] MEDS ORDERED: propofoL 50 ML IV ONE ×2 (07:31→08:57)
[2024-03-30] MEDS ORDERED: Lactated Ringer's 1,000 ML IV ONE ×2 (07:40→07:43)
[2024-03-30 09:37] VITALS: BP 105/59
--- NOTE | 2024-03-30 09:40 | NUR ---
03/30/24 0940 Val Jones PATIENT REPORTED 2-3 ABDOMINAL CRAMPING INITIALLY AFTER PROCEDURE BUT AFTER GETTING UP TO RESTROOM TO URINATE REPORTED THAT DISCOMFORT COMPLETELY RESOLVED.
== END 2024-03-30 09:35 | disposition home or self-care (01) ==
LOC: ORSCSDS 06:40
DX: Z12.11 Encounter for screening for malignant neoplasm of colon (principal); D12.3 Benign neoplasm of transverse colon; D12.2 Benign neoplasm of ascending colon; D12.4 Benign neoplasm of descending colon; D12.8 Benign neoplasm of rectum; R19.5 Other fecal abnormalities; I25.10 Atherosclerotic heart disease of native coronary artery without angina pectoris; E78.5 Hyperlipidemia, unspecified; M32.9 Systemic lupus erythematosus, unspecified; F17.210 Nicotine dependence, cigarettes, uncomplicated; Z79.82 Long term (current) use of aspirin; Z79.899 Other long term (current) drug therapy
CPT/HCPCS: 88305; J2704; J7120

== ENCOUNTER → 2025-02-05 | Outpatient (CLI) | payer OTHER ==
[~2025-02-05] MED LIST changes: +HYDSUL200; +HYDSUL200 PO
[2025-02-05 18:09] LABS: BASOPHILS ABSOLUTE AUTO 0.03 K/mm3 (0.00-0.23); BASOPHILS PERCENT AUTO 0 % (0-2); EOSINOPHILS ABSOLUTE AUTO 0.12 K/mm3 (0.00-0.68); EOSINOPHILS PERCENT AUTO 2 % (0-6); Hematocrit 42.9 % (33.0-51.0); Hemoglobin 14.1 g/dL (11.5-16.0); IMMATURE GRAN ABSOLUTE AUTO 0.02 K/mm3 (0.00-0.10); IMMATURE GRAN PERCENT AUTO 0 % (0-1); LYMPHOCYTES ABSOLUTE AUTO 2.03 K/mm3 (0.84-5.20); LYMPHOCYTES PERCENT AUTO 29 % (21-46); MONOCYTES ABSOLUTE AUTO 0.42 K/mm3 (0.16-1.47); MONOCYTES PERCENT AUTO 6 % (4-13); Mean Corpuscular HGB Conc 32.9 g/dL (31.5-36.5); Mean Corpuscular Volume 86 fL (80-100); NEUTROPHILS ABSOLUTE AUTO 4.37 K/mm3 (1.96-9.15); NEUTROPHILS PERCENT AUTO 63 % (41-73); NRBC ABSOLUTE 0.00 K/mm3 (0.00-0.02); NRBC Auto 0.0 /100 WBC (0.0-0.2); Platelet Count 187 K/mm3 (150-400); RDW Coefficient Variation 13.9 % (11.7-14.2); RDW Standard Deviation 43.3 fL (35.1-46.3)
[2025-02-05 21:17] LABS: Alanine Aminotransfer (ALT/SGP 27 U/L (12-78); Albumin, Blood 4.0 g/dL (3.4-5.0); Albumin/Globulin Ratio 1.2 (0.8-1.8); Anion Gap 6 mmol/L (3-11); Aspartate Aminotrans (AST/SGOT 16 U/L (12-37); Bilirubin, Total 0.4 mg/dL (0.1-1.0); Blood Urea Nitrogen 14 mg/dL (8-24); CHOL/HDL RATIO 3.3; CO2, Blood 26 mmol/L (21-32); Calcium, Blood 9.1 mg/dL (8.5-10.1); Chloride, Blood 108 mmol/L (98-108); Cholesterol 154 mg/dL (50-200); Creatinine, Blood 0.76 mg/dL (0.40-1.00); Globulin, Blood 3.3 g/dL (2.2-4.0); Glucose, Blood 109 mg/dL (70-99); HDL Cholesterol 46 mg/dL (>39); LDL/HDL RATIO 2.0; Low Density Lipoprotein Chol 90 mg/dL (0-110); Potassium, Blood 4.2 mmol/L (3.5-5.5); Sodium, Blood 136 mmol/L (136-145); Total Protein, Blood 7.3 g/dL (6.4-8.2); Triglycerides 90 mg/dL (30-160); Very Low Density Lipoprot Chol 18 mg/dL (6-32)
== END | disposition home or self-care (01) ==
LOC: LAB SHORT 16:02 → LAB 16:02
PROVIDERS: Family Medicine
DX: L93.0 Discoid lupus erythematosus (principal); E78.5 Hyperlipidemia, unspecified; E55.9 Vitamin D deficiency, unspecified; R73.03 Prediabetes
CPT/HCPCS: 80053; 80061; 82306; 83036; 85025